=== PATIENT | female | born 1975 ===

== ENCOUNTER 2018-12-08 01:34 | Day surgery (SDC) | payer BC ==
[~2018-12-08] VITALS: Ht 165.1 cm; Wt 63.5 kg
[~2018-12-08 01:34] MED LIST: ACET-1966 PO; DOXY-179 PO; EST3 PO; HYDR-3250 PO; HYDR25CA83 PO; LEVO-3 PO; LEVO25TA57 PO; LIDOCAINE 2% 200MG/10ML UROJET ONE; LIO5 PO; THYR30TA21 PO
[2018-12-08] MEDS: NORMOSOL R SOLN(*) 1000 ML BAG 1,000 ML IV PRN ×2 (06:14→07:22)
[2018-12-08] MEDS ORDERED: FAMOTIDINE 20 MG TAB PO ONE (06:30)
[2018-12-08] MEDS ORDERED: LIDOCAINE/SOD BICARB 8.4% SYR ID ONE (06:30)
[2018-12-08] MEDS ORDERED: MIDAZOLAM 2 MG/2 ML VIAL IVP PRN (06:30)
[2018-12-08 06:35] VITALS: BP 110/79
[2018-12-08] MEDS ORDERED: DEXAMETHASONE SOD 4 MG/ML VIAL ONE (06:51)
[2018-12-08] MEDS ORDERED: ONDANSETRON 4 MG/2 ML VIAL ONE (06:51)
[2018-12-08] MEDS ORDERED: BUPIVACAINE/EPI 0.5% 50ML VIAL INFIL ONE (06:51)
[2018-12-08] MEDS ORDERED: PROPOFOL EMUL(*) 10MG/ML 20 ML 20 ML ONE (06:51)
[2018-12-08] MEDS ORDERED: METOCLOPRAMIDE 10 MG/2 ML SDV ONE (06:51)
[2018-12-08] MEDS ORDERED: LIDOCAINE MPF 1% 5 ML VIAL ONE (06:51)
[2018-12-08] MEDS ORDERED: fentaNYL CITR 100 MCG/2 ML AMP ONE (06:53)
[2018-12-08] MEDS ORDERED: cefTRIAXone 1 GM VIAL IVP ONE (07:10)
[2018-12-08] MEDS ORDERED: metroNIDAZOLE* 500MG/100ML BAG 100 ML IVPB ONE (07:10)
[2018-12-08] MEDS ORDERED: cefTRIAXone(*) 1 GM VIAL 1 GM in NS(*) 0.9% 100 ML ADDVANT BAG 100 ML IVPB ONE (07:20)
[2018-12-08] MEDS ORDERED: TRAM-420 PO (08:25)
[2018-12-08] MEDS ORDERED: LIDO15SO2 TOP (08:28)
--- NOTE | 2018-12-08 08:30 | Short(Outpt) Discharge Summary ---
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 she presented for internal sphincterotomy and skin tag removal. she tolerated the procedures well and there were no complications. path pending. she will be discharged home when criteria met. Departure Discharge to: Home Discharge Instructions Home Meds Active Scripts Lidocaine HCl VISCOUS 2% (Lidocaine Viscous) 2 % Solution, 1 ADAM TOP Q4H for PAIN, #1 TUBE 1 Refill Prov:JOVANY FISHER 12/08/18 Tramadol Hcl (TRAMADOL HCL) 50 Mg Tablet, 50 MG PO Q4H for PAIN, #30 TAB Prov:JOVANY FISHER 12/08/18 Reported Medications Hydroxyzine Pamoate (VISTARIL) 25 Mg Capsule, 25 MG PO QHS, CAPSULE 11/24/18 Liothyronine Sodium (LIOTHYRONINE SODIUM) 5 Mcg Tablet, 5 MCG PO QDAY 11/24/18 Levothyroxine Sodium (LEVOTHYROXINE SODIUM) 100 Mcg Tablet, 100 MCG PO QDAY, TAB 11/24/18 Diet: Regular Activity: As Tolerated Special Instructions: sitz baths 15 min as needed fiber, stool softener, and laxative prn f/u dr. osito fisher 2 wks ([phone]) JOVANY FISHER Dec 08, 2018 08:30
--- NOTE | 2018-12-08 08:37 | Post Operative Progress Note ---
Post Operative Progress Note Date: Dec 08, 2018 Time: 08:31 Surgeon: alyssia fisher md #[id number] Ear Flap Binder: none Anesthesia: gen, local cr. crecca Pre-Op Diagnosis: anal fissure perianal skin tags Post-Op Diagnosis: same Findings: ant and post fissure skin tags Procedure(s): eua left lateral internal sphincterotomy skin tag removal x3 Specimen Removed:(May be N/A): skin tags Complications: none Fluids: iv crystalloid Estimated Blood Loss: minimal Date OP Note Dictated: Dec 08, 2018 Time OP Note Dictated: 08:33 JOVANY FISHER Dec 08, 2018 08:37
--- NOTE | 2018-12-08 09:03 | OPERATIVE REPORT 1 ---
EVENT DATE: December 08, 2018 SURGEON: Jose G Mcmahon MD ANESTHESIOLOGIST: Raymundo Locke MD ANESTHESIA: General and local. PREOPERATIVE DIAGNOSIS 1. Anal fissure. 2. Perianal skin tags. POSTOPERATIVE DIAGNOSIS 1. Anal fissure. 2. Perianal skin tags. PROCEDURE PERFORMED 1. Exam under anesthesia. 2. Left lateral internal sphincterotomy. 3. Skin tag removal times three. FLUIDS IV Crystalloid. ESTIMATED BLOOD LOSS Minimal. SPECIMENS Skin tags times three. COMPLICATIONS None. INDICATIONS This is a 43-year-old female with several months of perianal pain and bright red blood per rectum. On physical exam she was tender to palpation anteriorly and posteriorly. She had tried multiple conservative measures and without success. She also has at least one skin tag that is bothersome to her. Risk and benefits of the procedure were explained and consent was signed. DESCRIPTION OF PROCEDURE The patient was taken to the operating room and placed in the supine position. General anesthesia was administered per the anesthesia team. Buttocks were taped for exposure. The patient was prepped and draped in the normal sterile fashion after she was placed in the [facility] [place] stirru. Exam under anesthesia was performed. She has anterior and posterior fissures. Her sphincter tone was tight and there was no blood on the glove. There were no masses on the distal rectal exam. She also had skin tags in the anterior, posterior and left lateral positions. A retractor was placed to put internal sphincter on medium stretch. A small incision was made just distal to the distal aspect of the internal sphincter muscle. Blunt dissection was then performed with Metzenbaum scissors between the internal sphincter and the mucosa and then the scissors were passed into the intersphincteric groove. I then used the Metzenbaum scissors to perform a sphincterotomy. This was done almost up to the dentate line. It was done just beyond the proximal aspect of the fissures. The anterior left lateral and posterior skin tags were excised with electrocautery mostly on the cut setting. The wound at the anterior aspect was closed with a running 3-0 Chromic stitch. The others were very small and no stitch was indicated. Local analgesia was injected at the wound sites and in the form of a block. Appropriate hemostasis was assured. Surgifoam with Lidocaine was placed in the anal canal. Appropriate dressings were applied. The patient tolerated the procedure well. There were no complications. MTDD
[2018-12-08 09:15] VITALS: BP 119/82
[2018-12-08 09:30] VITALS: BP 109/66
--- NOTE | 2018-12-08 09:33 | NUR ---
0900 PATIENT WAS MOVED TO PHASE II. I WILL BE RESUMING CARE OF PATIENT. SEE PACU NOTES. 0915 PATIENT IS TOLERATING THE COFFEE WELL AND PUDDING WELL. SHE CONTINUES TO DENY ANY PAIN OR NAUSEA. SHE STATES SHE IS WAKING UP STILL BUT IS DOING WELL.
[2018-12-08 09:44] VITALS: BP 121/74
[2018-12-08 09:45] VITALS: BP 122/77
--- NOTE | 2018-12-08 09:54 | NUR ---
0944 BEGAN DOING ORTHOSTATICS WITH PATIENT. SHE DENIES ANY LIGHTHEADEDNESS OR DIZZINESS. 0945 PATIENT WAS STABLE ON HER FEET 0947 IV WAS DC'D WITH CATH INTACT 0950 PATIENT USED THE BATHROOM WITHOUT DIFFICULTIES 0954 PATIENT BEGAN GETTING DRESSED
--- NOTE | 2018-12-08 10:38 | NUR ---
1000 PATIENT IS READY AND WE ARE WAITING FOR HER MOM TO COME TO PICK HER UP 1024 WENT OVER DC INSTRUCTIONS WITH PATIENT AND MOM. THEY VERBALIZED UNDERSTANDING. 1027 PATIENT WAS TAKEN OUT. SHE WAS AMBULATORY ON DISCHARGE. SHE HAS A SMALL AMOUNT OF BLEEDING IN FISSURE AREA. SHE IS STABLE ON HER FEET. BOWEL SOUNDS ARE HYPERACTIVE. DENIES ANY PAIN OR NAUSEA. SEE DISCHARGE ASSESSMENT.
== END 2018-12-08 09:00 | disposition home or self-care (01) ==
LOC: OR 01:34
PROVIDERS: ATTEND Surgery
DX: K60.2 Anal fissure, unspecified (principal); K64.4 Residual hemorrhoidal skin tags
CPT/HCPCS: 46230; 81025; 88304; J0696; J1100; J2001; J2250; J2405; J2704; J2765; J3010; J3490; J7050

== ENCOUNTER 2019-04-29 00:18 | Day surgery (SDC) | payer BC ==
[~2019-04-29] VITALS: Ht 165.1 cm; Wt 60.8 kg
[~2019-04-29 00:18] MED LIST changes: +LIDO15SO2 TOP; -LIDOCAINE 2% 200MG/10ML UROJET ONE; -LIO5 PO; +LIOT5TAB PO; +TRAM-420 PO
[2019-04-29 07:19] VITALS: BP 105/77
[2019-04-29] MEDS ORDERED: fentaNYL CITR 100 MCG/2 ML AMP ONE (07:54)
[2019-04-29] MEDS ORDERED: LIDOCAINE MPF 1% 5 ML VIAL ONE (07:56)
[2019-04-29] MEDS ORDERED: PROPOFOL EMUL(*) 10MG/ML 20 ML 20 ML ONE (07:56)
[2019-04-29] MEDS ORDERED: MIDAZOLAM 2 MG/2 ML VIAL IVP PRN (08:05)
[2019-04-29] MEDS ORDERED: FAMOTIDINE 20 MG TAB PO ONE (08:05)
[2019-04-29] MEDS ORDERED: LIDOCAINE/SOD BICARB 8.4% SYR ID ONE (08:05)
[2019-04-29] MEDS ORDERED: NORMOSOL R SOLN(*) 1000 ML BAG 1,000 ML IV PRN (08:05)
[2019-04-29] MEDS ORDERED: ROPIVACAINE 0.5% 20 ML VIAL ONE (08:58)
[2019-04-29] MEDS ORDERED: DEXAMETHASONE SOD 4 MG/ML VIAL ONE (09:03)
[2019-04-29] MEDS ORDERED: ONDANSETRON 4 MG/2 ML VIAL ONE (09:04)
[2019-04-29] MEDS ORDERED: TRAM-420 PO (09:51)
--- NOTE | 2019-04-29 09:55 | Short(Outpt) Discharge Summary ---
Discharge Summary Reason for Hosp/Final Diag: (1) Fissure in ano Status: Chronic Hospital Course & Plan: Anal EUA and Right LIS completed without problems. (2) Chronic constipation Onset Date: 06/07/2015 Status: Chronic Departure Discharge to: Home, Self Care Discharge Instructions Home Meds Active Scripts Tramadol Hcl (TRAMADOL HCL) 50 Mg Tablet, 1 TAB PO Q4H PRN for PAIN, #20 TAB 0 Refills Prov:MAINOR SHERIDAN MD 04/29/19 Reported Medications Hydroxyzine Pamoate (VISTARIL) 25 Mg Capsule, 25 MG PO QHS, CAPSULE 11/24/18 Liothyronine Sodium (LIOTHYRONINE SODIUM) 5 Mcg Tablet, 5 MCG PO QDAY 11/24/18 Levothyroxine Sodium (LEVOTHYROXINE SODIUM) 100 Mcg Tablet, 100 MCG PO QDAY, TAB 11/24/18 Discontinued Scripts Lidocaine HCl VISCOUS 2% (Lidocaine Viscous) 2 % Solution, 1 ADAM TOP Q4H for PAIN, #1 TUBE 1 Refill Prov:JOVANY CAMACHO 12/08/18 Follow up Referrals: General Surgery - 05/17/19 @ Surgery, General with MAINOR SHERIDAN MD You have a follow up appointment scheduled with Dr. Sheridan on 05/17/19, at 4:00pm. Diet: Regular Activity: As Tolerated Special Instructions: You have packing in your anal canal that you can remove in 24 hours but if it comes out before then, that's OK. Start the bowel regimen instructions included in your discharge paperwork and take a stool softener on top of the regimen if needed. MAINOR SHERIDAN MD Apr 29, 2019 09:55
--- NOTE | 2019-04-29 10:00 | Post Operative Progress Note ---
Post Operative Progress Note Date: Apr 29, 2019 Time: 09:54 Surgeon: Darien Dictation number: [id number] Anesthesia: LMA by Dr. Rapp Pre-Op Diagnosis: Recurrent anal fissure Post-Op Diagnosis: DAYANNA Findings: C/W dx Procedure(s): Anal EUA with LIS Specimen Removed:(May be N/A): None Complications: None Fluids: See anesthesia record Estimated Blood Loss: Minimal Date OP Note Dictated: Apr 29, 2019 Time OP Note Dictated: 09:54 MAINOR SHERIDAN MD Apr 29, 2019 10:00
[2019-04-29 10:46] VITALS: BP 112/75
[2019-04-29 10:55] VITALS: BP 114/81
[2019-04-29 10:57] VITALS: BP 117/71
[2019-04-29] MEDS ORDERED: traMADol 50 MG TAB ONE (10:59)
--- NOTE | 2019-04-29 11:45 | OPERATIVE REPORT 1 ---
EVENT DATE: April 29, 2019 SURGEON: Raymundo Ledezma MD ANESTHESIOLOGIST: Humberto Rapp MD ANESTHESIA: LMA PREOPERATIVE DIAGNOSIS Return anal fissure. POSTOPERATIVE DIAGNOSIS Return anal fissure. PROCEDURE PERFORMED Anal exam under anesthesia and right lateral internal sphincterotomy. COMPLICATIONS None. CONDITION Stable. ESTIMATED BLOOD LOSS Minimal. FINDINGS The patient had a posterior fissure. I could feel the defect in her left lateral internal sphincter, but there felt to be a possible band of internal sphincter on the cephalad end. INDICATIONS This is a 44-year-old female who underwent lateral internal sphincterotomy about 5 months ago and had good results for about a month before her symptoms returned. She came to me for a second opinion and on exam, I could clearly feel the internal sphincterotomy defect and the internal sphincter, but because of her recurrent and persistent symptoms, I consented her for an anal exam under anesthesia and possibly either completion sphincterotomy or another internal sphincterotomy on the opposite side. DESCRIPTION OF PROCEDURE The patient was brought to the operating room and placed supine on the operating table. LMA anesthesia was administered and she was placed in candy-cane stirrups. Her perianal region was prepped and draped in sterile fashion. A timeout was completed. Digital rectal exam revealed posterior midline fissure. Her sphincter muscles were very tight and it was even hard to get an anal speculum through, but there was no obvious stricture, but if felt like very hypertrophic muscles. I felt the previous suterotomy and defect but I did not feel it to be adequately relaxing the internal sphincter. I had to make a decision whether to make an incision over this area and divide more tissue, but rather I though that the risk of incontinence would be less if I palpated the inner sphincter groove on the opposite side and then simply performed a new sphincterotomy on the opposite side to minimize injury to the external sphincter. I made a radial incision over the anterior sphincter groove on the patient's right and then used a hemostat to create the intersphincteric space and once the hemostat was completely through, used the electrocautery to divide the muscle. I then made this hemostatic and closed the mucosal defect with a running 3-0 Chromic suture. I then placed a rolled up Gelfoam in the anal canal and she was awakened and LMA removed and transported to the recovery room in stable condition having tolerated the procedure without any apparent problems. RAYSHAWN
== END 2019-04-29 10:46 | disposition home or self-care (01) ==
LOC: OR 00:18
PROVIDERS: ATTEND Surgery
DX: K60.2 Anal fissure, unspecified (principal); K59.00 Constipation, unspecified
CPT/HCPCS: 45990; 81025; J1100; J2001; J2405; J2704; J2795; J3010